=== PATIENT | male | born 1995 | race Caucasian/White ===

== ENCOUNTER 2020-12-16 22:33 | Emergency (ER) | payer BC ==
[~2020-12-16] VITALS: Ht 175.3 cm; Wt 72.6 kg
[2020-12-16 22:50] VITALS: BP 133/83
[2020-12-16] MEDS ORDERED: IBUPROFEN 600 MG TAB PO ONE (23:40)
[2020-12-17 00:40] VITALS: BP 128/76
== END 2020-12-17 00:35 | disposition home or self-care (01) ==
LOC: MED 22:33
DX: R50.9 Fever, unspecified (principal); Z20.822 Contact with and (suspected) exposure to COVID-19; M79.10 Myalgia, unspecified site; R51.9 Headache, unspecified; R53.83 Other fatigue; R53.81 Other malaise; R05 Cough
CPT/HCPCS: 93005; 99284; U0003